=== PATIENT | female | born 1960 | race Caucasian/White ===

== ENCOUNTER 2019-01-23 23:19 | Emergency (ER) | payer OTHER ==
[~2019-01-23] VITALS: Ht 182.9 cm; Wt 76.2 kg
[2019-01-23] MEDS ORDERED: ALBU90OI INH (23:37)
[2019-01-23] MEDS ORDERED: MEDR5 PO (23:37)
[2019-01-23] MEDS ORDERED: ESTRADIOL PO (23:38)
[2019-01-23] MEDS ORDERED: GABA300 PO (23:38)
[2019-01-23] MEDS ORDERED: NAPR500 PO (23:39)
[2019-01-23] MEDS ORDERED: Singulair10 MG PO (23:40)
[2019-01-23] MEDS ORDERED: METO50 PO (23:40)
[2019-01-23] MEDS ORDERED: TIOT18 INH (23:41)
[2019-01-23] MEDS ORDERED: CYCL10 PO (23:41)
[2019-01-24] MEDS ORDERED: Norco 5-325 Ta1 EACH PO (01:05)
[2019-01-24] MEDS ORDERED: CRUTCH2 XX (01:05)
== END 2019-01-24 04:00 | disposition home or self-care (01) ==
LOC: ER 23:19
DX: S82.851A Displaced trimalleolar fracture of right lower leg, initial encounter for closed fracture (principal); J44.9 Chronic obstructive pulmonary disease, unspecified; Z87.891 Personal history of nicotine dependence; Z88.8 Allergy status to other drugs, medicaments and biological substances; Z88.1 Allergy status to other antibiotic agents; Z79.899 Other long term (current) drug therapy; W18.39XA Other fall on same level, initial encounter
CPT/HCPCS: 27810; 73610; 76000; 99152; 99283-25; J2704; J7030

== ENCOUNTER 2019-01-27 08:26 | Day surgery (SDC) | payer OTHER ==
[~2019-01-27 08:26] MED LIST: ALBU90OI INH; CRUTCH2 XX; CYCL10 PO; ESTRADIOL PO; GABA300 PO; MEDR5 PO; METO50 PO; NAPR500 PO; Norco 5-325 Ta1 EACH PO; Singulair10 MG PO; TIOT18 INH
--- NOTE | 2019-01-27 10:46 | NUR ---
01/27/19 1045 Artur Phan BLISTER NOTED ON MEDIAL MALLEOLUS. SKIN INTACT.
== END 2019-01-27 12:53 | disposition home or self-care (01) ==
LOC: ORSCSDS 08:26
PROVIDERS: Podiatrist Foot & Ankle Surgery
PROC: 0QSG04Z Reposition Right Tibia with Internal Fixation Device, Open Approach (ICD-10-PCS; principal; 2019-01-27 10:00)
PROC: 0QSJ04Z Reposition Right Fibula with Internal Fixation Device, Open Approach (ICD-10-PCS; principal; 2019-01-27 10:00)
DX: S82.841A Displaced bimalleolar fracture of right lower leg, initial encounter for closed fracture (principal); I10 Essential (primary) hypertension; J44.9 Chronic obstructive pulmonary disease, unspecified; Z87.891 Personal history of nicotine dependence; Z79.899 Other long term (current) drug therapy
CPT/HCPCS: C1713; C1769; J0171; J0690; J1100; J2001; J2250; J2405; J2704; J3010

== ENCOUNTER 2019-04-23 11:16 | Inpatient (IN) | payer OTHER ==
[~2019-04-23] VITALS: Ht 182.9 cm; Wt 72.6 kg
[2019-04-23 12:09] LABS: BASOPHILS ABSOLUTE AUTO 0.08 K/mm3 (0.00-0.23); BASOPHILS PERCENT AUTO 0 % (0-2); EOSINOPHILS PERCENT AUTO 0 % (0-6); Hematocrit 38.9 % (33.0-51.0); Hemoglobin 12.8 g/dL (11.5-16.0); IMMATURE GRAN PERCENT AUTO 2 % (0-1); LYMPHOCYTES ABSOLUTE AUTO 1.29 K/mm3 (0.84-5.20); LYMPHOCYTES PERCENT AUTO 4 % (21-46); MONOCYTES ABSOLUTE AUTO 1.23 K/mm3 (0.16-1.47); MONOCYTES PERCENT AUTO 4 % (4-13); Mean Corpuscular HGB 31.8 pg (26.0-34.0); Mean Corpuscular HGB Conc 32.9 g/dL (31.5-36.5); Mean Corpuscular Volume 97 fL (80-100); Mean Platelet Volume 9.7 fL (9.1-12.4); NEUTROPHILS ABSOLUTE AUTO 30.46 K/mm3 (1.96-9.15); NEUTROPHILS PERCENT AUTO 90 % (41-73); NRBC ABSOLUTE 0.02 K/mm3 (0.00-0.02); NRBC Auto 0.1 /100 WBC (0.0-0.2); Platelet Count 273 K/mm3 (150-400); RDW Standard Deviation 46.6 fL (35.1-46.3); Red Blood Cell Count 4.03 M/mm3 (3.80-5.20); White Blood Cell Count 33.76 K/mm3 (4.00-11.30)
[2019-04-23 12:24] LABS: Anion Gap 10 mmol/L (6-16); Blood Urea Nitrogen 13 mg/dL (8-24); Bun/Creatinine Ratio 19.9 (12.0-20.0); CO2, Blood 22 mmol/L (21-32); Calcium, Blood 8.6 mg/dL (8.5-10.1); Chloride, Blood 105 mmol/L (98-108); Creatinine, Blood 0.65 mg/dL (0.40-1.00); Glomerular Filtration Rate >60 (60-); Glucose, Blood 128 mg/dL (70-99); Sodium, Blood 137 mmol/L (136-145)
[2019-04-23] MEDS ORDERED: ESTRADIOL1 M1 PO (15:54)
[2019-04-23] MEDS ORDERED: NAPROXEN500 MG PO (15:55)
[2019-04-23] MEDS ORDERED: SPIRIVA RESPIMAT4 GM INH (15:55)
[2019-04-23] MEDS ORDERED: GABAPENTIN600 MG PO (15:55)
--- NOTE | 2019-04-23 17:00 | NUR ---
RECEIVED REPORT FROM RODRIGUEZ MONGE RN. PT TRANSPORTED TO PCU VIA GURNEY. IN NO ACUTE DISTRESS AT THIS TIME, TRANSFERRED EASILY TO HOSPITAL BED.
[2019-04-23 20:09] LABS: Adenovirus Not Detected (NOT DETECT); Bordetella pertussis Not Detected (NOT DETECT); Chlamydophila pneumoniae Not Detected (NOT DETECT); Coronavirus 229E Not Detected (NOT DETECT); Coronavirus HKU1 Not Detected (NOT DETECT); Coronavirus NL63 Not Detected (NOT DETECT); Coronavirus OC43 Not Detected (NOT DETECT); Human Metapneumovirus Not Detected (NOT DETECT); Human Rhinovirus/Enterovirus Not Detected (NOT DETECT); Influenza A Not Detected (NOT DETECT); Influenza A/2009-H1 Not Detected (NOT DETECT); Influenza A/H1 Not Detected (NOT DETECT); Influenza A/H3 Not Detected (NOT DETECT); Influenza B Not Detected (NOT DETECT); Mycoplasma pneumoniae Not Detected (NOT DETECT); Parainfluenza Virus 1 Not Detected (NOT DETECT); Parainfluenza Virus 2 Not Detected (NOT DETECT); Parainfluenza Virus 3 Not Detected (NOT DETECT); Parainfluenza Virus 4 Not Detected (NOT DETECT); Respiratory Syncytial Virus Not Detected (NOT DETECT)
[2019-04-24 03:54] LABS: BASOPHILS ABSOLUTE AUTO 0.06 K/mm3 (0.00-0.23); BASOPHILS PERCENT AUTO 0 % (0-2); EOSINOPHILS ABSOLUTE AUTO 0.08 K/mm3 (0.00-0.68); EOSINOPHILS PERCENT AUTO 0 % (0-6); Hematocrit 33.8 % (33.0-51.0); Hemoglobin 10.8 g/dL (11.5-16.0); IMMATURE GRAN PERCENT AUTO 1 % (0-1); LYMPHOCYTES ABSOLUTE AUTO 1.62 K/mm3 (0.84-5.20); LYMPHOCYTES PERCENT AUTO 5 % (21-46); MONOCYTES ABSOLUTE AUTO 1.11 K/mm3 (0.16-1.47); MONOCYTES PERCENT AUTO 4 % (4-13); Mean Corpuscular HGB 31.2 pg (26.0-34.0); Mean Corpuscular Volume 98 fL (80-100); Mean Platelet Volume 9.6 fL (9.1-12.4); NEUTROPHILS ABSOLUTE AUTO 26.63 K/mm3 (1.96-9.15); NEUTROPHILS PERCENT AUTO 89 % (41-73); Platelet Count 234 K/mm3 (150-400); RDW Coefficient Variation 13.2 % (11.7-14.2); Red Blood Cell Count 3.46 M/mm3 (3.80-5.20)
[2019-04-24 04:11] LABS: Alanine Aminotransfer (ALT/SGP 52 U/L (12-78); Albumin, Blood 2.5 g/dL (3.4-5.0); Albumin/Globulin Ratio 0.7 (0.8-1.8); Alk Phos 116 U/L (50-136); Anion Gap 6 mmol/L (6-16); Aspartate Aminotrans (AST/SGOT 31 U/L (12-37); Bilirubin, Total 0.3 mg/dL (0.1-1.0); Blood Urea Nitrogen 10 mg/dL (8-24); Bun/Creatinine Ratio 16.1 (12.0-20.0); CO2, Blood 24 mmol/L (21-32); Calcium, Blood 7.9 mg/dL (8.5-10.1); Chloride, Blood 111 mmol/L (98-108); Creatinine, Blood 0.62 mg/dL (0.40-1.00); Globulin, Blood 3.5 g/dL (2.2-4.0); Glomerular Filtration Rate >60 (60-); Glucose, Blood 101 mg/dL (70-99); Potassium, Blood 4.1 mmol/L (3.5-5.5); Sodium, Blood 141 mmol/L (136-145)
--- NOTE | 2019-04-24 05:53 | NUR ---
SHIFT SUMMARY: PT A&O X4 THROUGHOUT SHIFT. BP LOW WITH MAP >70. LOW GRADE TEMP OF 99.1 ONCE. ALL OTHER VSS. TELE SHOWS SR WITH FIRST DEGREE HB. LEFT SIDE OF NECK REMAINS SWOLLEN, RED AND WARM TO TOUCH. NO INCREASE IN SWELING OR REDNESS. PT DENIES SOB. ABLE TO SWALLOW. PAIN MANAGED WITH PERCOCET PER EMAR. FLUIDS INFUSING PER ORDER. PT OUT OF BED WITH SBA TO BATHROOM. WEAK WITH TRANSFERS/AMBULATION. VOIDING WELL. RAJNI PO.
--- NOTE | 2019-04-24 07:23 | NUR ---
ASSUMED CARE OF PT. IN NO ACUTE DISTRESS AT THIS TIME. DENIES SOB OR DYSPNEA, STATES SHE IS HAVING CONTINUAL NECK PAIN ENCOURAGED PT TO TRY USING A COLD COMPRESS TO EASE THE PAIN. DENIES ANY OTHER NEEDS AT THIS TIME. WILL CONTINUE TO MONITOR.
--- NOTE | 2019-04-24 18:52 | NUR ---
PT RESTING IN BED COMFORTABLY, IN NO ACUTE DISTRESS. DENIES ANY NEEDS AT THIS TIME. CALL LIGHT AND POSSESSIONS IN REACH, BED IN LOW POSITION.
[2019-04-25 05:13] LABS: BASOPHILS ABSOLUTE AUTO 0.05 K/mm3 (0.00-0.23); BASOPHILS PERCENT AUTO 0 % (0-2); EOSINOPHILS ABSOLUTE AUTO 0.33 K/mm3 (0.00-0.68); EOSINOPHILS PERCENT AUTO 2 % (0-6); Hematocrit 32.2 % (33.0-51.0); Hemoglobin 10.4 g/dL (11.5-16.0); IMMATURE GRAN ABSOLUTE AUTO 0.45 K/mm3 (0.00-0.10); IMMATURE GRAN PERCENT AUTO 2 % (0-1); LYMPHOCYTES ABSOLUTE AUTO 1.95 K/mm3 (0.84-5.20); LYMPHOCYTES PERCENT AUTO 9 % (21-46); MONOCYTES ABSOLUTE AUTO 1.05 K/mm3 (0.16-1.47); MONOCYTES PERCENT AUTO 5 % (4-13); Mean Corpuscular HGB 31.4 pg (26.0-34.0); Mean Corpuscular HGB Conc 32.3 g/dL (31.5-36.5); Mean Corpuscular Volume 97 fL (80-100); Mean Platelet Volume 9.7 fL (9.1-12.4); NEUTROPHILS ABSOLUTE AUTO 16.84 K/mm3 (1.96-9.15); NEUTROPHILS PERCENT AUTO 82 % (41-73); Platelet Count 234 K/mm3 (150-400); RDW Coefficient Variation 13.3 % (11.7-14.2); Red Blood Cell Count 3.31 M/mm3 (3.80-5.20); White Blood Cell Count 20.67 K/mm3 (4.00-11.30)
--- NOTE | 2019-04-25 05:46 | NUR ---
SHIFT SUMMARY: PT WITHOUT ANY SIGNIFICANT CHANGES OVER NIGHT. VSS. SCHED METOPROLOL HELD R/T SBP <110. CELLULITIS TO L LATERAL NECK DOES NOT APPEAR TO BE WORSE OR IMPROVED. VANCO AND FLUIDS INFUSING PER EMAR. DECREASED WBC'S THIS MORNING. PAIN BEING MANAGED WITH PERCOCET PER EMAR. OOB TO BATHROOM WITH SBA. RAJNI ACTIVITY WELL.
--- NOTE | 2019-04-25 10:34 | NUR ---
TRANSFER OF CARE REPORT GIVEN TO ARYA MATTHEWS. PT TRANSPORTED TO ROOM 354 VIA W/C ON MEDICAL FLOOR. BELONGINGS GATHERED AND TRANSPORTED WITH PT.
--- NOTE | 2019-04-25 16:12 | NUR ---
SHIFT SUMMARY PCU TRANSFER THIS MORNING. PATIENT MEDICATED X1 FOR PAIN THIS SHIFT. DENIES NAUSEA AND SHORTNESS OF BREATH. PATIENT UP SBA FOR LINE MANAGEMENT. PATIENT NAPPING AND WATCHING TV MOST OF SHIFT. CALL LIGHT IN REACH.
[2019-04-25 16:31] LABS: Vancomycin, Trough 15.5 ug/mL (5.0-10.0)
[2019-04-26 05:00] LABS: Hemoglobin 10.2 g/dL (11.5-16.0); Mean Corpuscular HGB 31.7 pg (26.0-34.0); Mean Corpuscular HGB Conc 32.9 g/dL (31.5-36.5); Mean Corpuscular Volume 96 fL (80-100); Mean Platelet Volume 9.8 fL (9.1-12.4); Platelet Count 249 K/mm3 (150-400); RDW Coefficient Variation 13.3 % (11.7-14.2); RDW Standard Deviation 47.9 fL (35.1-46.3); Red Blood Cell Count 3.22 M/mm3 (3.80-5.20)
--- NOTE | 2019-04-26 07:24 | NUR ---
SHIFT SUMMARY: VSS. AFEB. A/OX4. COMMUNICATES NEEDS. REDNESS AND SWELLING CONT ON L NECK AND SHOULDER. REDNESS DECREASED ON SUPERIOR PORTION OF OUTLINED AREA, INCREASED BEYOND INFERIOR PORTION OF OUTLINED AREA. PT STATES SWELLING HAS IMPROVED GREATLY. CONT WITH PAIN- ICE AND PRN ANALGESICS HAVE BEEN EFFECTIVELY MANAGING NECK PAIN. NO ACUTE CHANGES OVERNIGHT.
--- NOTE | 2019-04-26 14:45 | NUR ---
Advance directive education/spiritual care visit conducted. Upon receiving an admit referral for advance directive education, I visited patient and patient says that she does have interest and has gone throught he process with her life partner Tita. I go through the sections of the booklet and talk about the filing process. Patient voices and understanding and says that she will take it home and work it through with Tita. I also talked with patient about what inspires her and she talks about Tita and her cats and coming up from living on the streets. Patient has much better support systems in place and is excited to be home and recovering from her current medical issues. I will continue to remain available to patient and family.
--- NOTE | 2019-04-26 17:32 | NUR ---
SHIFT SUMMARY THE PATIENT HAD AN UNEVENTFUL DAY. REQUESTED PAIN MEDICATION ONLY ONCE LATE THIS AFTERNOON WITH EFFECTIVENESS TO HER L NECK. VITALS HAVE REMAINED STABLE. PATIENT CONTINUES ON IV ABX WITHOUT S/SX OF ADVERSE REACTIONS NOTED OR REPORTED. PATIENT IS PLEASANT AND COOPERATIVE WITH STAFF AND CALL FOR STAFF ASSIST NEEDED.
--- NOTE | 2019-04-27 04:01 | NUR ---
SHIFT SUMMARY PT HAD SOME PAIN RELATED TO L NECK. PT GIVEN ICE PACKS AND PAIN MED ORDERED. PT DISCOMFORT RELIEVED WITH TX. PT HAS SLEPT OFF AND ON T/O SHIFT. PT CURRENTLY RESTING AND WATCHING TV. CALL LIGHT IN REACH.
--- NOTE | 2019-04-27 16:51 | NUR ---
SHIFT SUMMARY THE PATIENT HAD AN ENEVENTFUL SHIFT. VERY CHEERY AND PLEASANT. PAIN MEDICATION GIVEN PER PATIENT REQUEST WITH EFFECTIVENESS. PATIENT CONTINUES ON IV ABX WITHOUT S/SX OF ADVERSE REACTIONS NOTED OR REPORTED. NO NEW CHANGES TO REPORT AT THIS TIME.
[2019-04-27 17:09] LABS: Vancomycin, Trough 27.5 ug/mL (5.0-10.0)
[2019-04-28 05:01] LABS: BASOPHILS ABSOLUTE AUTO 0.05 K/mm3 (0.00-0.23); BASOPHILS PERCENT AUTO 0 % (0-2); EOSINOPHILS ABSOLUTE AUTO 0.37 K/mm3 (0.00-0.68); EOSINOPHILS PERCENT AUTO 2 % (0-6); Hematocrit 33.1 % (33.0-51.0); Hemoglobin 10.7 g/dL (11.5-16.0); IMMATURE GRAN ABSOLUTE AUTO 0.46 K/mm3 (0.00-0.10); IMMATURE GRAN PERCENT AUTO 3 % (0-1); LYMPHOCYTES ABSOLUTE AUTO 2.27 K/mm3 (0.84-5.20); LYMPHOCYTES PERCENT AUTO 14 % (21-46); MONOCYTES ABSOLUTE AUTO 0.86 K/mm3 (0.16-1.47); MONOCYTES PERCENT AUTO 6 % (4-13); Mean Corpuscular HGB 30.7 pg (26.0-34.0); Mean Corpuscular HGB Conc 32.3 g/dL (31.5-36.5); Mean Corpuscular Volume 95 fL (80-100); Mean Platelet Volume 9.5 fL (9.1-12.4); NEUTROPHILS ABSOLUTE AUTO 11.74 K/mm3 (1.96-9.15); NEUTROPHILS PERCENT AUTO 75 % (41-73); NRBC ABSOLUTE 0.02 K/mm3 (0.00-0.02); NRBC Auto 0.1 /100 WBC (0.0-0.2); Platelet Count 334 K/mm3 (150-400); RDW Coefficient Variation 13.4 % (11.7-14.2); RDW Standard Deviation 46.3 fL (35.1-46.3); Red Blood Cell Count 3.49 M/mm3 (3.80-5.20); White Blood Cell Count 15.75 K/mm3 (4.00-11.30)
[2019-04-28 05:36] LABS: Anion Gap 6 mmol/L (6-16); Blood Urea Nitrogen 8 mg/dL (8-24); Bun/Creatinine Ratio 15.4 (12.0-20.0); CO2, Blood 24 mmol/L (21-32); Calcium, Blood 8.7 mg/dL (8.5-10.1); Chloride, Blood 112 mmol/L (98-108); Creatinine, Blood 0.52 mg/dL (0.40-1.00); Glomerular Filtration Rate >60 (60-); Glucose, Blood 96 mg/dL (70-99); Potassium, Blood 4.1 mmol/L (3.5-5.5); Sodium, Blood 142 mmol/L (136-145)
--- NOTE | 2019-04-28 07:21 | NUR ---
NOC SHIFT SUMMARY PT IS PLEASANT AND COOPERATIVE WITH CARE. TREATED FOR HEADACHE THIS NIGHT PER EMAR TO GOOD EFFECT. THE CELLULITIS ON HER NECK APPEARS IMPROVED. VSS. NO ACUTE CHANGE NOTED THIS NIGHT. REPORT TO ONCOMING RN.
--- NOTE | 2019-04-28 14:28 | NUR ---
Patient is discouraged today and tearful. Patient shares about the personal struggles she is going through. I listen empathically, normalize her experince, encouraged self-care and provide companionship. Patient responds well and voices appreciation for the visit.
--- NOTE | 2019-04-28 17:56 | NUR ---
SHIFT SUMMARY THE PATIENT SEEMED MORE "UNDER THE WEATHER" TODAY. PATIENT STATED THAT HER HEADACHE JUST SEEMED TO LINGER AROUND DISPITE PAIN MEDICATION. DR BRIAN EXAMINED PATIENT AND FELT IT NECESSARY TO KEEP HER ANOTHER DAY AND RUN A FEW MORE BLOOD TESTS AND CT SCAN ON HER. PATIENT CONTINUES ON IV ABX, ALTHOUGH THEY HAVE BEEN CHANGED EFFECTIVE THIS AFTERNOON; PATIENT WITHOUT S/SX OF ADVERSE REACTIONS NOTED. PAIN MEDICATION ADMINISTERED REQUESTED WITH MODERATE RESULTS, HOWEVER DID SEEM TO LAST ANY LENGTH OF TIME WITH THE EFFECTIVENESS. SHE IS MANAGING WELL CONSIDERING. VITALS REMAIN STABLE. PATIENT CALLS FOR STAFF ASSIST APPROPRIATELY AND REMAINS PLEASANT WITH STAFF. WILL CONTINUE TO MONITOR AND PROVIDE CARE NEEDED.
[2019-04-29 04:58] LABS: BASOPHILS ABSOLUTE AUTO 0.05 K/mm3 (0.00-0.23); BASOPHILS PERCENT AUTO 0 % (0-2); EOSINOPHILS ABSOLUTE AUTO 0.39 K/mm3 (0.00-0.68); EOSINOPHILS PERCENT AUTO 3 % (0-6); Hematocrit 34.9 % (33.0-51.0); Hemoglobin 11.1 g/dL (11.5-16.0); IMMATURE GRAN ABSOLUTE AUTO 0.53 K/mm3 (0.00-0.10); IMMATURE GRAN PERCENT AUTO 4 % (0-1); LYMPHOCYTES ABSOLUTE AUTO 2.32 K/mm3 (0.84-5.20); LYMPHOCYTES PERCENT AUTO 17 % (21-46); MONOCYTES ABSOLUTE AUTO 0.82 K/mm3 (0.16-1.47); MONOCYTES PERCENT AUTO 6 % (4-13); Mean Corpuscular HGB 30.9 pg (26.0-34.0); Mean Corpuscular HGB Conc 31.8 g/dL (31.5-36.5); Mean Corpuscular Volume 97 fL (80-100); Mean Platelet Volume 9.5 fL (9.1-12.4); NEUTROPHILS ABSOLUTE AUTO 9.28 K/mm3 (1.96-9.15); NEUTROPHILS PERCENT AUTO 69 % (41-73); Platelet Count 371 K/mm3 (150-400); RDW Coefficient Variation 13.2 % (11.7-14.2); Red Blood Cell Count 3.59 M/mm3 (3.80-5.20); White Blood Cell Count 13.39 K/mm3 (4.00-11.30)
[2019-04-29 05:19] LABS: Alanine Aminotransfer (ALT/SGP 92 U/L (12-78); Albumin, Blood 2.7 g/dL (3.4-5.0); Albumin/Globulin Ratio 0.6 (0.8-1.8); Alk Phos 159 U/L (50-136); Anion Gap 5 mmol/L (6-16); Aspartate Aminotrans (AST/SGOT 49 U/L (12-37); Bilirubin, Total 0.3 mg/dL (0.1-1.0); Blood Urea Nitrogen 8 mg/dL (8-24); Bun/Creatinine Ratio 13.9 (12.0-20.0); CO2, Blood 26 mmol/L (21-32); Calcium, Blood 8.7 mg/dL (8.5-10.1); Chloride, Blood 111 mmol/L (98-108); Creatinine, Blood 0.58 mg/dL (0.40-1.00); Globulin, Blood 4.3 g/dL (2.2-4.0); Glomerular Filtration Rate >60 (60-); Glucose, Blood 95 mg/dL (70-99); Potassium, Blood 4.2 mmol/L (3.5-5.5); Sodium, Blood 142 mmol/L (136-145)
--- NOTE | 2019-04-29 06:27 | NUR ---
SHIFT SUMMARY PT IS A 58 Y/O FEMALE, ADMITTED FOR L NECK CELLULITIS. SHE IS A&O X 4, AND UP IN THE ROOM INDEPENDENTLY. PT COMPLAINED OF A HEADACHE DURING THE NIGHT, AND WAS MEDICATED TWICE WITH PRN NORCO. NO COMPLAINTS OF NAUSEA OR SOB. VITALS STABLE. PT REPORTS SHE SLEPT WELL. NO ACUTE CHANGES IN PT CONDITION NOTED DURING THE NIGHT. WILL CONTINUE TO MONITOR AND TREAT PER EMAR UNTIL HAND OFF TO DAY SHIFT RN.
--- NOTE | 2019-04-29 19:47 | NUR ---
SHIFT SUMMARY NO ACUTE CHANGES NOTED FROM ASSESSMENT. PT REMAINS A&O X4, INDEPENDENT IN THE ROOM, VSS, ON ROOM AIR, IV IS SL. ABX WERE CHANGED TO PO. 1 PERC FOR PAIN, PT STILL C/O MILD HEADACHE. ENT CONSULT WAS PLACED PER 'S ORDERS. REPORT GIVEN TO SONDRA RN. CALL LIGHT IN REACH.
--- NOTE | 2019-04-30 04:33 | NUR ---
SHIFT SUMMARY PT IS A 58 Y/O FEMALE, ADMITTED FOR L NECK CELLULITIS. SHE IS A&O X 4, AND INDEPENDENT IN THE ROOM. PT IS STILL C/O A MILD HEADACHE, AND WAS MEDICATED ONCE WITH FLEXERIL AND PERCOCET AT BEDTIME FOR HER HEADACHE. NO COMPLAINTS OF NAUSEA OR SOB. VITAL SIGNS STABLE. PT SLEPT WELL DURING THE NIGHT. NO ACUTE CHANGES IN PT CONDITION NOTED. WILL CONTINUE TO MONITOR AND TREAT PER EMAR UNTIL HAND OFF TO DAY SHIFT RN.
[2019-04-30 05:02] LABS: BASOPHILS ABSOLUTE AUTO 0.04 K/mm3 (0.00-0.23); BASOPHILS PERCENT AUTO 0 % (0-2); EOSINOPHILS ABSOLUTE AUTO 0.39 K/mm3 (0.00-0.68); EOSINOPHILS PERCENT AUTO 3 % (0-6); Hematocrit 36.5 % (33.0-51.0); Hemoglobin 11.6 g/dL (11.5-16.0); IMMATURE GRAN PERCENT AUTO 4 % (0-1); LYMPHOCYTES PERCENT AUTO 19 % (21-46); MONOCYTES ABSOLUTE AUTO 0.78 K/mm3 (0.16-1.47); MONOCYTES PERCENT AUTO 6 % (4-13); Mean Corpuscular HGB 30.8 pg (26.0-34.0); Mean Corpuscular HGB Conc 31.8 g/dL (31.5-36.5); Mean Corpuscular Volume 97 fL (80-100); Mean Platelet Volume 9.4 fL (9.1-12.4); NEUTROPHILS ABSOLUTE AUTO 8.29 K/mm3 (1.96-9.15); NEUTROPHILS PERCENT AUTO 67 % (41-73); Platelet Count 448 K/mm3 (150-400); RDW Coefficient Variation 13.3 % (11.7-14.2); RDW Standard Deviation 46.8 fL (35.1-46.3); Red Blood Cell Count 3.77 M/mm3 (3.80-5.20)
[2019-04-30 05:36] LABS: Alanine Aminotransfer (ALT/SGP 82 U/L (12-78); Albumin, Blood 3.1 g/dL (3.4-5.0); Albumin/Globulin Ratio 0.7 (0.8-1.8); Alk Phos 157 U/L (50-136); Anion Gap 5 mmol/L (6-16); Aspartate Aminotrans (AST/SGOT 41 U/L (12-37); Bilirubin, Total 0.3 mg/dL (0.1-1.0); Blood Urea Nitrogen 12 mg/dL (8-24); Bun/Creatinine Ratio 21.2 (12.0-20.0); CO2, Blood 26 mmol/L (21-32); Calcium, Blood 9.2 mg/dL (8.5-10.1); Chloride, Blood 108 mmol/L (98-108); Creatinine, Blood 0.57 mg/dL (0.40-1.00); Globulin, Blood 4.7 g/dL (2.2-4.0); Glomerular Filtration Rate >60 (60-); Glucose, Blood 99 mg/dL (70-99); Potassium, Blood 4.3 mmol/L (3.5-5.5); Sodium, Blood 139 mmol/L (136-145); Total Protein, Blood 7.8 g/dL (6.4-8.2)
--- NOTE | 2019-04-30 13:03 | NUR ---
Patient greets me as I enter patient's room. She immediately tells me the updates on her medical issues and her friend Tita's medical issues. Patient is in an upbeat mood and is talkative. I listen empathically and provide companionship. I will continue to remain available to patient and family.
[2019-04-30] MEDS ORDERED: AMOCLA500 PO (14:18)
[2019-04-30] MEDS ORDERED: Percocet 5-3251 EACH PO (14:19)
--- NOTE | 2019-04-30 15:03 | NUR ---
discharge summary patient is pleasant, alert and oriented. no questions at discharge. patient was given her paper copy of her oxy prescription. copy is in the chart. all medications were sent to her pharmacy of choice. patient had follow up appointments prior to discharge. patient was wheeled out by rn.
== END 2019-04-30 14:40 | disposition home or self-care (01) | DRG 872 ==
LOC: ER 11:16 → PCU 15:42 → MEDS 15:42 → PCU 16:26 → MEDS 04-25 10:41
PROVIDERS: Emergency Medicine; Internal Medicine; Nurse Practitioner Acute Care; ADMIT Internal Medicine
DX: A41.9 Sepsis, unspecified organism (principal); L03.221 Cellulitis of neck; J44.9 Chronic obstructive pulmonary disease, unspecified; I10 Essential (primary) hypertension; M54.9 Dorsalgia, unspecified; G89.4 Chronic pain syndrome; Z86.14 Personal history of Methicillin resistant Staphylococcus aureus infection; Z87.891 Personal history of nicotine dependence
CPT/HCPCS: 0099U; 36415; 70491; 80048; 80053; 80202; 82565; 83605; 85025; 85027; 85651; 86140; 87040; 87081; 87430; 94640; 94760; 96361; 96365-59; 96367; 96375-59; 99285-25; J0690; J0696; J1650; J2405; J3010; J3370; J7030; Q9967

== ENCOUNTER 2019-09-28 07:27 | Day surgery (SDC) | payer OTHER ==
[~2019-09-28] VITALS: Ht 182.9 cm; Wt 80.4 kg
[~2019-09-28 07:27] MED LIST changes: +AMOCLA500 PO; +ESTRADIOL1 M1 PO; +GABAPENTIN600 MG PO; +NAPROXEN500 MG PO; +Percocet 5-3251 EACH PO; +SPIRIVA RESPIMAT4 GM INH
[2019-09-28] MEDS ORDERED: CRITIC-AID CLEAR4 GM (08:22)
== END 2019-09-28 10:22 | disposition home or self-care (01) ==
LOC: ORSCSDS 07:27
PROVIDERS: Internal Medicine Gastroenterology
PROC: 0DJD8ZZ Inspection of Lower Intestinal Tract, Via Natural or Artificial Opening Endoscopic (ICD-10-PCS; principal; 2019-09-28 09:15)
DX: K92.1 Melena (principal); K64.8 Other hemorrhoids; I10 Essential (primary) hypertension; F41.8 Other specified anxiety disorders; J44.9 Chronic obstructive pulmonary disease, unspecified; Z87.891 Personal history of nicotine dependence; Z79.899 Other long term (current) drug therapy
CPT/HCPCS: J0330; J0461; J2405; J2704; J7120

== ENCOUNTER 2020-01-25 04:07 | Emergency (ER) | payer OTHER ==
[~2020-01-25 04:07] MED LIST changes: +CRITIC-AID CLEAR4 GM
[2020-01-25 06:50] LABS: BASOPHILS ABSOLUTE AUTO 0.05 K/mm3 (0.00-0.23); BASOPHILS PERCENT AUTO 0 % (0-2); EOSINOPHILS ABSOLUTE AUTO 0.15 K/mm3 (0.00-0.68); EOSINOPHILS PERCENT AUTO 1 % (0-6); Hemoglobin 13.3 g/dL (11.5-16.0); IMMATURE GRAN ABSOLUTE AUTO 0.12 K/mm3 (0.00-0.10); IMMATURE GRAN PERCENT AUTO 1 % (0-1); LYMPHOCYTES ABSOLUTE AUTO 3.75 K/mm3 (0.84-5.20); LYMPHOCYTES PERCENT AUTO 27 % (21-46); MONOCYTES ABSOLUTE AUTO 0.94 K/mm3 (0.16-1.47); MONOCYTES PERCENT AUTO 7 % (4-13); Mean Corpuscular HGB Conc 32.4 g/dL (31.5-36.5); Mean Corpuscular Volume 99 fL (80-100); Mean Platelet Volume 9.3 fL (9.1-12.4); NEUTROPHILS ABSOLUTE AUTO 9.15 K/mm3 (1.96-9.15); NEUTROPHILS PERCENT AUTO 65 % (41-73); Platelet Count 327 K/mm3 (150-400); RDW Coefficient Variation 13.3 % (11.7-14.2); RDW Standard Deviation 48.5 fL (35.1-46.3); Red Blood Cell Count 4.16 M/mm3 (3.80-5.20); White Blood Cell Count 14.16 K/mm3 (4.00-11.30)
[2020-01-25 07:05] LABS: Alanine Aminotransfer (ALT/SGP 36 U/L (12-78); Albumin, Blood 3.8 g/dL (3.4-5.0); Albumin/Globulin Ratio 1.1 (0.8-1.8); Alk Phos 71 U/L (50-136); Anion Gap 6 mmol/L (6-16); Aspartate Aminotrans (AST/SGOT 16 U/L (12-37); Bilirubin, Total 0.4 mg/dL (0.1-1.0); Blood Urea Nitrogen 10 mg/dL (8-24); Bun/Creatinine Ratio 17.9 (12.0-20.0); CO2, Blood 29 mmol/L (21-32); Calcium, Blood 8.7 mg/dL (8.5-10.1); Chloride, Blood 103 mmol/L (98-108); Creatinine, Blood 0.56 mg/dL (0.40-1.00); Globulin, Blood 3.5 g/dL (2.2-4.0); Glomerular Filtration Rate >60 (60-); Glucose, Blood 103 mg/dL (70-99); Potassium, Blood 3.2 mmol/L (3.5-5.5); Sodium, Blood 138 mmol/L (136-145); Total Protein, Blood 7.3 g/dL (6.4-8.2)
[2020-01-25] MEDS ORDERED: MORP20L PO (08:14)
[2020-01-25] MEDS ORDERED: ONDA4ODT SL (08:14)
[2020-01-25] MEDS ORDERED: DEXA1L PO (08:15)
== END 2020-01-25 09:01 | disposition home or self-care (01) ==
LOC: ER 04:07
PROVIDERS: Emergency Medicine
DX: R13.10 Dysphagia, unspecified (principal); R22.1 Localized swelling, mass and lump, neck; J44.9 Chronic obstructive pulmonary disease, unspecified; Z88.6 Allergy status to analgesic agent; Z88.1 Allergy status to other antibiotic agents; Z48.89 Encounter for other specified surgical aftercare; Z79.899 Other long term (current) drug therapy
CPT/HCPCS: 70491; 80053; 85025; J0690; J1100; J1170; J2405; Q9967

== ENCOUNTER → 2020-05-18 | Outpatient (CLI) | payer OTHER ==
[~2020-05-18] MED LIST changes: +DEXA1L PO; +MORP20L PO; +ONDA4ODT SL
[2020-05-18 16:01] LABS: BASOPHILS ABSOLUTE AUTO 0.04 K/mm3 (0.00-0.23); BASOPHILS PERCENT AUTO 0 % (0-2); EOSINOPHILS ABSOLUTE AUTO 0.39 K/mm3 (0.00-0.68); EOSINOPHILS PERCENT AUTO 4 % (0-6); Hematocrit 40.2 % (33.0-51.0); Hemoglobin 13.2 g/dL (11.5-16.0); IMMATURE GRAN ABSOLUTE AUTO 0.03 K/mm3 (0.00-0.10); IMMATURE GRAN PERCENT AUTO 0 % (0-1); LYMPHOCYTES ABSOLUTE AUTO 2.58 K/mm3 (0.84-5.20); LYMPHOCYTES PERCENT AUTO 25 % (21-46); MONOCYTES ABSOLUTE AUTO 0.56 K/mm3 (0.16-1.47); MONOCYTES PERCENT AUTO 6 % (4-13); Mean Corpuscular HGB 31.7 pg (26.0-34.0); Mean Corpuscular HGB Conc 32.8 g/dL (31.5-36.5); Mean Corpuscular Volume 97 fL (80-100); Mean Platelet Volume 9.5 fL (9.1-12.4); NEUTROPHILS ABSOLUTE AUTO 6.59 K/mm3 (1.96-9.15); NEUTROPHILS PERCENT AUTO 65 % (41-73); Platelet Count 286 K/mm3 (150-400); RDW Coefficient Variation 14.5 % (11.7-14.2); RDW Standard Deviation 51.1 fL (35.1-46.3); Red Blood Cell Count 4.16 M/mm3 (3.80-5.20); White Blood Cell Count 10.19 K/mm3 (4.00-11.30)
[2020-05-18 16:07] LABS: Anion Gap 7 mmol/L (6-16); Blood Urea Nitrogen 11 mg/dL (8-24); Bun/Creatinine Ratio 14.5 (12.0-20.0); CO2, Blood 28 mmol/L (21-32); Calcium, Blood 8.9 mg/dL (8.5-10.1); Chloride, Blood 103 mmol/L (98-108); Creatinine, Blood 0.76 mg/dL (0.40-1.00); Glomerular Filtration Rate >60 (60-); Glucose, Blood 100 mg/dL (70-99); Potassium, Blood 3.9 mmol/L (3.5-5.5); Sodium, Blood 138 mmol/L (136-145)
== END | disposition home or self-care (01) ==
LOC: LAB SHORT 15:58 → LAB EV 15:58
PROVIDERS: Physician Assistant Surgical
DX: R55 Syncope and collapse (principal)
CPT/HCPCS: 80048; 85025

== ENCOUNTER → 2021-03-13 | Outpatient (CLI) | payer OTHER | END | disposition home or self-care (01) | LOC: LAB SHORT 15:05 → LAB 15:05 | PROVIDERS: Nurse Practitioner | DX: Z11.59 Encounter for screening for other viral diseases (principal); Z12.4 Encounter for screening for malignant neoplasm of cervix | CPT/HCPCS: 86803 ==

== ENCOUNTER → 2021-04-24 | Outpatient (CLI) | payer OTHER ==
[2021-04-26 12:01] LABS: HPV 16 Negative (Negative); HPV 18 Negative (Negative); HPV OTHER HR TYPES Negative (Negative)
== END ==
LOC: LAB SHORT 14:28
PROVIDERS: Registered Nurse Community Health
DX: Z12.4 Encounter for screening for malignant neoplasm of cervix (principal)
CPT/HCPCS: 87624; G0123

== ENCOUNTER → 2021-08-01 | Outpatient (CLI) | payer OTHER ==
[2021-08-01 19:33] LABS: BASOPHILS ABSOLUTE AUTO 0.04 K/mm3 (0.00-0.23); BASOPHILS PERCENT AUTO 0 % (0-2); EOSINOPHILS ABSOLUTE AUTO 0.19 K/mm3 (0.00-0.68); EOSINOPHILS PERCENT AUTO 2 % (0-6); Hematocrit 43.8 % (33.0-51.0); Hemoglobin 14.4 g/dL (11.5-16.0); IMMATURE GRAN ABSOLUTE AUTO 0.02 K/mm3 (0.00-0.10); IMMATURE GRAN PERCENT AUTO 0 % (0-1); LYMPHOCYTES ABSOLUTE AUTO 2.95 K/mm3 (0.84-5.20); LYMPHOCYTES PERCENT AUTO 29 % (21-46); MONOCYTES ABSOLUTE AUTO 0.62 K/mm3 (0.16-1.47); MONOCYTES PERCENT AUTO 6 % (4-13); Mean Corpuscular HGB 31.1 pg (26.0-34.0); Mean Corpuscular HGB Conc 32.9 g/dL (31.5-36.5); Mean Corpuscular Volume 95 fL (80-100); Mean Platelet Volume 10.7 fL (9.1-12.4); NEUTROPHILS PERCENT AUTO 62 % (41-73); Platelet Count 289 K/mm3 (150-400); RDW Coefficient Variation 13.3 % (11.7-14.2); RDW Standard Deviation 46.1 fL (35.1-46.3); Red Blood Cell Count 4.63 M/mm3 (3.80-5.20); White Blood Cell Count 10.12 K/mm3 (4.00-11.30)
[2021-08-01 20:11] LABS: Alanine Aminotransfer (ALT/SGP 23 U/L (12-78); Albumin, Blood 4.1 g/dL (3.4-5.0); Albumin/Globulin Ratio 1.6 (0.8-1.8); Alk Phos 81 U/L (50-136); Anion Gap 4 mmol/L (6-16); Aspartate Aminotrans (AST/SGOT 17 U/L (12-37); Bilirubin, Total 0.3 mg/dL (0.1-1.0); Blood Urea Nitrogen 10 mg/dL (8-24); Bun/Creatinine Ratio 18.1 (12.0-20.0); CHOL/HDL RATIO 4.6; CO2, Blood 27 mmol/L (21-32); Calcium, Blood 9.1 mg/dL (8.5-10.1); Chloride, Blood 111 mmol/L (98-108); Cholesterol 198 mg/dL (50-200); Creatinine, Blood 0.55 mg/dL (0.40-1.00); Globulin, Blood 2.5 g/dL (2.2-4.0); Glomerular Filtration Rate >60 (60-); Glucose, Blood 99 mg/dL (70-99); HDL Cholesterol 43 mg/dL (>39); LDL/HDL RATIO 3.1; Low Density Lipoprotein Chol 132 mg/dL (0-110); Potassium, Blood 4.3 mmol/L (3.5-5.5); Sodium, Blood 142 mmol/L (136-145); Total Protein, Blood 6.6 g/dL (6.4-8.2); Triglycerides 114 mg/dL (30-160); Very Low Density Lipoprot Chol 22 mg/dL (6-32)
== END ==
LOC: LAB SHORT 15:20
PROVIDERS: Nurse Practitioner
DX: Z13.6 Encounter for screening for cardiovascular disorders (principal); Z13.1 Encounter for screening for diabetes mellitus; I10 Essential (primary) hypertension
CPT/HCPCS: 80053; 80061; 85025

== ENCOUNTER → 2021-12-18 | Outpatient (CLI) | payer OTHER | END | disposition home or self-care (01) | LOC: LAB SHORT 11:36 | DX: L08.9 Local infection of the skin and subcutaneous tissue, unspecified (principal); D48.5 Neoplasm of uncertain behavior of skin; L57.8 Other skin changes due to chronic exposure to nonionizing radiation; L81.4 Other melanin hyperpigmentation; D22.5 Melanocytic nevi of trunk; Z71.89 Other specified counseling | CPT/HCPCS: 87070; 87077; 87186; 87205 ==

== ENCOUNTER 2022-08-16 18:05 | Emergency (ER) | payer OTHER ==
[~2022-08-16] VITALS: Ht 182.9 cm; Wt 59.0 kg
[~2022-08-16 18:05] MED LIST changes: -AMLO5 PO; -FLONASE ALLERG9.9 ML; -LORA10ER PO; -MUPIROCIN2210 TOP; -Primidone50 MG PO; -Robaxin750 MG PO; -TRITOCIN430 GM TOP
[2022-08-16] MEDS ORDERED: FLONASE ALLERG9.9 ML (22:14)
[2022-08-16] MEDS ORDERED: Primidone50 MG PO (22:17)
[2022-08-16] MEDS ORDERED: Robaxin750 MG PO (22:17)
[2022-08-16] MEDS ORDERED: AMLO5 PO (22:18)
[2022-08-16] MEDS ORDERED: TRITOCIN430 GM TOP (22:18)
[2022-08-16] MEDS ORDERED: LORA10ER PO (22:18)
[2022-08-16] MEDS ORDERED: MUPIROCIN2210 TOP (22:19)
[2022-08-16 23:13] VITALS: BP 126/76
== END 2022-08-16 23:47 | disposition home or self-care (01) ==
LOC: ER 18:05
DX: I44.4 Left anterior fascicular block (principal); E86.0 Dehydration; Z88.8 Allergy status to other drugs, medicaments and biological substances; Z88.1 Allergy status to other antibiotic agents; Z79.899 Other long term (current) drug therapy; J44.9 Chronic obstructive pulmonary disease, unspecified; I10 Essential (primary) hypertension
CPT/HCPCS: 36415; 84484; 93005; 93010; 96360; 99285-25; A9270; J7030

== ENCOUNTER → 2022-08-16 | Outpatient (CLI) | payer OTHER ==
[~2022-08-16] MED LIST changes: +AMLO5 PO; +FLONASE ALLERG9.9 ML; +LORA10ER PO; +MUPIROCIN2210 TOP; +Primidone50 MG PO; +Robaxin750 MG PO; +TRITOCIN430 GM TOP
[2022-08-16 11:44] LABS: BASOPHILS ABSOLUTE AUTO 0.06 K/mm3 (0.00-0.23); BASOPHILS PERCENT AUTO 0 % (0-2); EOSINOPHILS ABSOLUTE AUTO 0.03 K/mm3 (0.00-0.68); EOSINOPHILS PERCENT AUTO 0 % (0-6); Hematocrit 47.1 % (33.0-51.0); Hemoglobin 16.2 g/dL (11.5-16.0); IMMATURE GRAN ABSOLUTE AUTO 0.07 K/mm3 (0.00-0.10); IMMATURE GRAN PERCENT AUTO 1 % (0-1); LYMPHOCYTES ABSOLUTE AUTO 2.31 K/mm3 (0.84-5.20); LYMPHOCYTES PERCENT AUTO 16 % (21-46); MONOCYTES ABSOLUTE AUTO 0.96 K/mm3 (0.16-1.47); MONOCYTES PERCENT AUTO 7 % (4-13); Mean Corpuscular HGB 32.4 pg (26.0-34.0); Mean Corpuscular HGB Conc 34.4 g/dL (31.5-36.5); Mean Corpuscular Volume 94 fL (80-100); Mean Platelet Volume 9.5 fL (9.1-12.4); NEUTROPHILS ABSOLUTE AUTO 11.13 K/mm3 (1.96-9.15); NEUTROPHILS PERCENT AUTO 76 % (41-73); Platelet Count 316 K/mm3 (150-400); RDW Coefficient Variation 13.8 % (11.7-14.2); RDW Standard Deviation 47.8 fL (35.1-46.3); White Blood Cell Count 14.56 K/mm3 (4.00-11.30)
[2022-08-16 12:21] LABS: Albumin, Blood 4.8 g/dL (3.4-5.0); Albumin/Globulin Ratio 1.4 (0.8-1.8); Bilirubin, Total 0.6 mg/dL (0.1-1.0); Calcium, Blood 9.7 mg/dL (8.5-10.1); Creatinine, Blood 0.56 mg/dL (0.40-1.00); Globulin, Blood 3.5 g/dL (2.2-4.0); Potassium, Blood 3.6 mmol/L (3.5-5.5); Total Protein, Blood 8.3 g/dL (6.4-8.2)
== END ==
LOC: LAB 11:35 → LAB SHORT 11:35
PROVIDERS: Chiropractor
DX: R11.2 Nausea with vomiting, unspecified (principal)
CPT/HCPCS: 80053; 83690; 84484; 85025

== ENCOUNTER → 2022-08-22 | Outpatient (CLI) | payer OTHER ==
[~2022-08-22] MED LIST changes: +AMLO5 PO; +FLONASE ALLERG9.9 ML; +LORA10ER PO; +MUPIROCIN2210 TOP; +Primidone50 MG PO; +Robaxin750 MG PO; +TRITOCIN430 GM TOP
[2022-08-22 14:48] LABS: BASOPHILS ABSOLUTE AUTO 0.04 K/mm3 (0.00-0.23); BASOPHILS PERCENT AUTO 1 % (0-2); EOSINOPHILS ABSOLUTE AUTO 0.14 K/mm3 (0.00-0.68); EOSINOPHILS PERCENT AUTO 2 % (0-6); Hematocrit 38.5 % (33.0-51.0); Hemoglobin 12.7 g/dL (11.5-16.0); IMMATURE GRAN ABSOLUTE AUTO 0.01 K/mm3 (0.00-0.10); IMMATURE GRAN PERCENT AUTO 0 % (0-1); LYMPHOCYTES ABSOLUTE AUTO 2.25 K/mm3 (0.84-5.20); LYMPHOCYTES PERCENT AUTO 32 % (21-46); MONOCYTES ABSOLUTE AUTO 0.52 K/mm3 (0.16-1.47); MONOCYTES PERCENT AUTO 7 % (4-13); Mean Corpuscular HGB 31.6 pg (26.0-34.0); Mean Corpuscular Volume 96 fL (80-100); Mean Platelet Volume 10.6 fL (9.1-12.4); NEUTROPHILS ABSOLUTE AUTO 4.19 K/mm3 (1.96-9.15); NEUTROPHILS PERCENT AUTO 59 % (41-73); Platelet Count 244 K/mm3 (150-400); RDW Coefficient Variation 13.5 % (11.7-14.2); RDW Standard Deviation 48.5 fL (35.1-46.3); Red Blood Cell Count 4.02 M/mm3 (3.80-5.20); White Blood Cell Count 7.15 K/mm3 (4.00-11.30)
[2022-08-22 14:50] LABS: Anion Gap 0 mmol/L (6-16); Blood Urea Nitrogen 7 mg/dL (8-24); Bun/Creatinine Ratio 5.2 (12.0-20.0); CHOL/HDL RATIO 2.9; CO2, Blood 30 mmol/L (21-32); Calcium, Blood 8.7 mg/dL (8.5-10.1); Chloride, Blood 110 mmol/L (98-108); Cholesterol 143 mg/dL (50-200); Creatinine, Blood 1.35 mg/dL (0.40-1.00); Glomerular Filtration Rate 45 (60-); Glucose, Blood 102 mg/dL (70-99); HDL Cholesterol 50 mg/dL (>39); LDL/HDL RATIO 1.6; Low Density Lipoprotein Chol 79 mg/dL (0-110); Potassium, Blood 4.2 mmol/L (3.5-5.5); Sodium, Blood 140 mmol/L (136-145); Triglycerides 70 mg/dL (30-160); Very Low Density Lipoprot Chol 14 mg/dL (6-32)
== END ==
LOC: LAB 13:22 → LAB SHORT 13:22
PROVIDERS: Nurse Practitioner Family
DX: E78.5 Hyperlipidemia, unspecified (principal); I10 Essential (primary) hypertension; R73.01 Impaired fasting glucose
CPT/HCPCS: 80048; 80061; 83036; 85025

== ENCOUNTER → 2023-02-20 | Outpatient (CLI) | payer OTHER ==
[2023-02-20 14:52] LABS: Albumin, Blood 4.4 g/dL (3.4-5.0); Albumin/Globulin Ratio 1.7 (0.8-1.8); Bilirubin, Total 0.5 mg/dL (0.1-1.0); Bun/Creatinine Ratio 14.6 (12.0-20.0); Calcium, Blood 8.8 mg/dL (8.5-10.1); Creatinine, Blood 0.68 mg/dL (0.40-1.00); Globulin, Blood 2.6 g/dL (2.2-4.0); Potassium, Blood 4.6 mmol/L (3.5-5.5); Thyroid Stimulating Hormone 0.966 uIU/mL (0.360-4.800)
== END ==
LOC: LAB 12:48 → LAB SHORT 12:48
PROVIDERS: Nurse Practitioner Family
DX: I10 Essential (primary) hypertension (principal); N95.1 Menopausal and female climacteric states
CPT/HCPCS: 80053; 84443

== ENCOUNTER 2023-03-04 05:39 | Day surgery (SDC) | payer OTHER ==
[~2023-03-04] VITALS: Ht 180.3 cm; Wt 69.0 kg
[2023-03-04] MEDS ORDERED: FURO20 PO (06:37)
[2023-03-04 10:30] VITALS: BP 145/78
[2023-03-04 10:45] VITALS: BP 146/81
[2023-03-04 11:00] VITALS: BP 147/79
--- NOTE | 2023-03-04 11:01 | NUR ---
PT AND FRIEND VERBALIZED UNDERSTANDING OF WRITTEN AND VERBAL D/C INST. IV REMOVED. PT TAKING PO FLUIDS /S DIFFICULTY. AMB TO THE BATHROOM /C SBA. TOLERATED WELL. PT TAKEN OUT OF THE [facility] VIA W/C.
== END 2023-03-04 22:39 | disposition home or self-care (01) ==
LOC: MHTC 05:39
DX: I47.10 Supraventricular tachycardia, unspecified (principal); I34.0 Nonrheumatic mitral (valve) insufficiency; I10 Essential (primary) hypertension; J44.9 Chronic obstructive pulmonary disease, unspecified; Z87.891 Personal history of nicotine dependence
CPT/HCPCS: 93312; 93325; A9270; J7030

== ENCOUNTER 2023-10-07 08:05 | Day surgery (SDC) | payer OTHER ==
[2023-10-07] VITALS (12 sets, daily range): BP systolic 111–149; BP diastolic 70–101
[~2023-10-07] VITALS: Ht 180.3 cm; Wt 74.0 kg
[~2023-10-07 08:05] MED LIST changes: +FURO20 PO; +Lactated Ringer's 1,000 ML IV SCH; +STIOLTO RESPIMAT4 G1 IH
[2023-10-07] MEDS ORDERED: FARXIGA5 MG PO (08:25)
--- NOTE | 2023-10-07 08:55 | NUR ---
Ambulatory in Day Surgery. History, Chart, Medications and Allergies reviewed before start of procedure. Lungs clear T/O to Auscultation. PT REPORTS HAVING DRANK WATER THIS MORNING DUE TO FEELING NAUSEOUS FROM THE PREP. PT STATES THEIR LAST WATER INTAKE WAS 0700, BUT THEY HAD SIPS ON THE WAY TO THE HOSPITAL. PT SAYS DESPITE NOT DRINKING THE ENTIRE PREP, THEIR CLEANOUT APPEARS DARK YELLOW WITH NO SEDIMENT. DR HARRINGTON AND SEDATION RN NOTIFIED. Patient States Post-Procedure ride home has been arranged.
[2023-10-07] MEDS ORDERED: propofoL 40 ML IV ONE (09:38)
--- NOTE | 2023-10-07 09:49 | NUR ---
10/07/23 0949 Jarrett Moses HISTORY, CHART, MEDICATIONS AND ALLERGIES REVIEWED BEFORE START OF PROCEDURE. PATIENT CONFIRMS NPO STATUS AND AGREES WITH SCHEDULED PROCEDURE. 3-LEAD EKG REVIEWED WITH PHYSICIAN PRIOR TO START OF PROCEDURE. MONITOR INTACT WITH CONTINUOUS PULSE OXIMETRY,CAPNOGRAPHY, 3-LEAD EKG, INTERMITTENT BP. SUPPLEMENTAL O2 TO BE TITRATED THROUGHOUT PROCEDURE TO MAINTAIN O2 SATURATION ABOVE 90%. PATIENT DETERMINED TO BE ASA APPROPRIATE FOR PROPOFOL SEDATION PRIOR TO START OF PROCEDURE BY DR. HARRINGTON.
[2023-10-07] MEDS ORDERED: Midazolam HCl 1MG / ML 2ML Vial ONE (09:51)
--- NOTE | 2023-10-07 10:11 | NUR ---
PT TO DAY SURGERY STEP DOWN FROM COLONOSCOPY; BEDSIDE REPORT RECEIEVED. PT IS AWAKE, ALERT AND ORIENTED; ABLE TO MOVE SELF IN BED. VSS. PT REQUESTING APPLE JUICE. NO COMPLAINTS AT THIS TIME.
--- NOTE | 2023-10-07 10:21 | NUR ---
PT TOLERATING PO FLUIDS WELL. Discharge instructions reviewed with patient. Patient verbalizes understanding. Copy given to patient to take home. Patient States Post-Procedure ride home has been arranged.
--- NOTE | 2023-10-07 10:39 | NUR ---
Patient up to Ambulate independently. Gait steady.
--- NOTE | 2023-10-07 10:41 | NUR ---
Discharged via wheelchair to private car for ride home.
== END 2023-10-07 22:35 | disposition home or self-care (01) ==
LOC: ORSCMMR 08:05 → ORD 09:00 → ORSCMMR 09:00
PROVIDERS: Internal Medicine Gastroenterology
PROC: 0DBM8ZX Excision of Descending Colon, Via Natural or Artificial Opening Endoscopic, Diagnostic (ICD-10-PCS; principal; 2023-10-07 09:00)
DX: K62.5 Hemorrhage of anus and rectum (principal); K59.09 Other constipation; K63.5 Polyp of colon; J44.9 Chronic obstructive pulmonary disease, unspecified; I34.0 Nonrheumatic mitral (valve) insufficiency; Z87.891 Personal history of nicotine dependence; Z79.899 Other long term (current) drug therapy
CPT/HCPCS: 88305; J2250; J2704; J7120

== ENCOUNTER → 2024-02-12 | Outpatient (CLI) | payer OTHER ==
[~2024-02-12] MED LIST changes: +FARXIGA5 MG PO; -Lactated Ringer's 1,000 ML IV SCH
[2024-02-12 16:45] LABS: BASOPHILS ABSOLUTE AUTO 0.04 K/mm3 (0.00-0.23); BASOPHILS PERCENT AUTO 1 % (0-2); EOSINOPHILS ABSOLUTE AUTO 0.13 K/mm3 (0.00-0.68); EOSINOPHILS PERCENT AUTO 2 % (0-6); Hematocrit 44.8 % (33.0-51.0); Hemoglobin 15.1 g/dL (11.5-16.0); IMMATURE GRAN ABSOLUTE AUTO 0.03 K/mm3 (0.00-0.10); IMMATURE GRAN PERCENT AUTO 0 % (0-1); LYMPHOCYTES ABSOLUTE AUTO 2.11 K/mm3 (0.84-5.20); LYMPHOCYTES PERCENT AUTO 27 % (21-46); MONOCYTES ABSOLUTE AUTO 0.57 K/mm3 (0.16-1.47); MONOCYTES PERCENT AUTO 7 % (4-13); Mean Corpuscular HGB Conc 33.7 g/dL (31.5-36.5); Mean Corpuscular Volume 98 fL (80-100); Mean Platelet Volume 9.5 fL (9.1-12.4); NEUTROPHILS ABSOLUTE AUTO 5.06 K/mm3 (1.96-9.15); NEUTROPHILS PERCENT AUTO 64 % (41-73); Platelet Count 256 K/mm3 (150-400); RDW Coefficient Variation 14.5 % (11.7-14.2); RDW Standard Deviation 52.5 fL (35.1-46.3); Red Blood Cell Count 4.58 M/mm3 (3.80-5.20); White Blood Cell Count 7.94 K/mm3 (4.00-11.30)
[2024-02-12 17:05] LABS: Alanine Aminotransfer (ALT/SGP 33 U/L (12-78); Albumin, Blood 4.2 g/dL (3.4-5.0); Albumin/Globulin Ratio 1.4 (0.8-1.8); Alk Phos 79 U/L (50-136); Anion Gap 11 mmol/L (3-11); Aspartate Aminotrans (AST/SGOT 28 U/L (12-37); Bilirubin, Total 0.6 mg/dL (0.1-1.0); Blood Urea Nitrogen 14 mg/dL (8-24); Bun/Creatinine Ratio 18.6 (12.0-20.0); CHOL/HDL RATIO 1.7; CO2, Blood 29 mmol/L (21-32); Calcium, Blood 8.6 mg/dL (8.5-10.1); Chloride, Blood 105 mmol/L (98-108); Cholesterol 173 mg/dL (50-200); Creatinine, Blood 0.75 mg/dL (0.40-1.00); Globulin, Blood 2.9 g/dL (2.2-4.0); Glomerular Filtration Rate 91 (60-); Glucose, Blood 113 mg/dL (70-99); HDL Cholesterol 102 mg/dL (>39); LDL/HDL RATIO 0.6; Low Density Lipoprotein Chol 60 mg/dL (0-110); Magnesium, Blood 2.2 mg/dL (1.6-2.4); Potassium, Blood 4.6 mmol/L (3.5-5.5); Sodium, Blood 140 mmol/L (136-145); Total Protein, Blood 7.1 g/dL (6.4-8.2); Triglycerides 54 mg/dL (30-160); Very Low Density Lipoprot Chol 11 mg/dL (6-32)
== END ==
LOC: LAB SHORT 13:48 → LAB 13:48
PROVIDERS: Nurse Practitioner Family
DX: E78.5 Hyperlipidemia, unspecified (principal); R25.2 Cramp and spasm; R73.01 Impaired fasting glucose
CPT/HCPCS: 80053; 80061; 82306; 83036; 83735; 85025

== ENCOUNTER → 2024-08-30 | Outpatient (CLI) | payer OTHER | END | disposition home or self-care (01) | LOC: LAB 18:27 → LAB SHORT 18:27 | DX: N39.0 Urinary tract infection, site not specified (principal) | CPT/HCPCS: 87077; 87086; 87186 ==

== ENCOUNTER 2025-01-17 14:29 | Emergency (ER) | payer OTHER ==
[~2025-01-17] VITALS: Ht 180.3 cm; Wt 71.7 kg
[2025-01-17 14:57] VITALS: BP 169/100
[2025-01-17] MEDS ORDERED: Lidocaine 4% 1 Patch TOP ONE (15:35)
== END 2025-01-17 16:59 | disposition home or self-care (01) ==
LOC: ER 14:29
DX: T14.90XA Injury, unspecified, initial encounter (principal); M54.2 Cervicalgia; V43.52XA Car driver injured in collision with other type car in traffic accident, initial encounter; Z79.899 Other long term (current) drug therapy; Z88.6 Allergy status to analgesic agent; Z88.1 Allergy status to other antibiotic agents
CPT/HCPCS: 72040; 99284-25; A9270

== ENCOUNTER → 2025-02-14 | Outpatient (CLI) | payer OTHER | LOC: LAB SHORT 15:45 → LAB 15:45 | DX: N89.4 Leukoplakia of vagina (principal) | CPT/HCPCS: 87077; 87086; 87186 ==

== ENCOUNTER → 2025-02-14 | Outpatient (CLI) | payer OTHER ==
[2025-02-14 19:35] LABS: Bacterial Vaginosis PCR Negative (NEGATIVE); Candida Group, PCR NOT DETECTED (NOT DETECT); Candida glabrata-krusei, PCR NOT DETECTED (NOT DETECT)
== END ==
LOC: LAB SHORT 17:55 → LAB 17:55
PROVIDERS: Nurse Practitioner Family
DX: N89.4 Leukoplakia of vagina (principal)
CPT/HCPCS: 81515